=== PATIENT | female | born 1950 | race Caucasian/White ===

== ENCOUNTER 2019-08-22 21:34 | Observation (INO) | payer MEDICARE ==
[~2019-08-22] VITALS: Ht 167.6 cm; Wt 106.3 kg
[~2019-08-22 21:34] MED LIST: ACET325T14 PO; ALPR0.254 PO; AMIO200T42 PO; AMLO-150 PO; ATOR10TA PO; FEXO60TA24 PO; FLUO20TA25 PO; FLUT1DIS3 INH; GLIM4TAB8 PO; HYDR-3342 PO; INSU100C SQ-INSULIN; INSU100I11 SC; INSU100I13 SC; INSU300I SC; LACT1CAP40 PO; LIRA0.6P SC; LOSA1TAB25 PO; METO-93 PO; METO25TA91 PO; MONT10TA11 PO; MULT-642 PO; NEBI5TAB3 PO; OLME1TAB25 PO; OMEP-110 PO
[2019-08-22] MEDS ORDERED: FUROSEMIDE (21:53)
[2019-08-22] MEDS ORDERED: TRELEGY (21:53)
[2019-08-22] MEDS ORDERED: INSULIN (21:53)
[2019-08-22] MEDS ORDERED: ALBUTEROL INHALER (21:53)
[2019-08-22] MEDS ORDERED: GLIPIZIDE (21:53)
--- NOTE | 2019-08-22 21:54 | NUR ---
PT TRANSFERRED FROM [facility] FOR GIB. PT WAS SEEN THERE TODAY FOR SOB AND RIGHT LEG SWELLING. US NEGATIVE FRO BC. MULTIPLE BREATHING TX ADMINISTERED AT [facility]. PT CONNECTED TO [facility] VSS. DR. MONTES TO BS FOR ASSESSMENT. AWAITING ORDERS.
[2019-08-22] MEDS ORDERED: CEFTRIAXONE PMX 1GM/50ML 50 ML IV ONE (22:00)
--- NOTE | 2019-08-22 22:05 | NUR ---
report to JESSICA Pineda. pt resting in room. 2L NC placed for low during sleep.
--- NOTE | 2019-08-22 22:07 | NUR ---
RECEIVED BS REPORT FROM JESSICA THOMAS TO ASSUME CARE OF PT. ALL MONITORS IN PLACE. ALL SAFETY MEASURES OBSERVED. CALL LIGHT IN REACH. PT. AWARE AND AGREES WITH POC.
--- NOTE | 2019-08-22 22:22 | NUR ---
IV ESTABLISHED, 1 SET OF CULTURES DRAWN WITH IV START. AWAITING 2ND SET.
[2019-08-22] MEDS ORDERED: BISACODYL 10 MG SUPP PR PRN (22:30)
[2019-08-22] MEDS: INSULIN LISPRO 100 UNITS/ML, PEN SQ-INSULIN SCH (22:30)
[2019-08-22] MEDS ORDERED: HEPARIN 5,000 UNITS/ML, 1ML SQ SCH (22:30)
[2019-08-22] MEDS ORDERED: ACETAMINOPHEN 325 MG TABLET PO PRN (22:30)
[2019-08-22] MEDS ORDERED: POLYETHYLENE GLYCOL 17 GM PACKET PO PRN (22:30)
[2019-08-22] MEDS ORDERED: ONDANSETRON ODT 4 MG PO PRN (22:30)
--- NOTE | 2019-08-22 23:10 | NUR ---
1ST ATTEMPT TO CALL REPORT TO FLOOR.
--- NOTE | 2019-08-22 23:22 | NUR ---
TASK RN: REPORT CALLED TO JESSICA SUNSHINE.
[2019-08-22 23:40] VITALS: BP 175/76
[2019-08-23] MEDS: CEFTRIAXONE PMX 1GM/50ML 50 ML IV SCH (00:43)
[2019-08-23] MEDS: FUROSEMIDE 20 MG/2 ML IV SCH ×2 (00:43→07:51)
[2019-08-23 01:19] VITALS: BP 147/73
[2019-08-23 01:46] VITALS: BP 146/82
[2019-08-23 04:51] LABS: OCCULT BLOOD NEGATIVE (NEGATIVE)
[2019-08-23 05:32] VITALS: BP 136/67
[2019-08-23] MEDS: CARVEDILOL 12.5 MG TABLET PO SCH ×2 (05:33→17:36)
[2019-08-23 05:35] LABS: MD YES
[2019-08-23 05:37] LABS: MEAN CORPUSCULAR HEMOGLOBIN 19.2 pg (27.0-34.8); MEAN CORPUSCULAR VOLUME 64.5 fL (80-100); MEAN PLATELET VOLUME 8.6 fL (7.4-10.4); PLATELET COUNT 244 x10^3/uL (130-400); RED BLOOD COUNT 4.15 x10^6/uL (3.82-5.3); RED CELL DISTRIBUTION WIDTH 19.2 % (9.6-15.2)
[2019-08-23 05:43] LABS: CHLORIDE 115 mmol/L (98-107)
[2019-08-23 05:51] LABS: ALANINE AMINOTRANSFERASE 17 U/L (12-78); ALKALINE PHOSPHATASE 81 U/L (45-117); ANION GAP 5 mmol/L (5-15); BILIRUBIN,TOTAL 0.4 mg/dL (0.2-1.0); CALCIUM 8.1 mg/dL (8.5-10.1); CREATININE 1.39 mg/dL (0.55-1.02); TOTAL PROTEIN 6.1 g/dL (6.4-8.2)
[2019-08-23 06:04] LABS: EOS#(MANUAL) 0.55 x10^3/uL (0.0-0.4); EOS% (MANUAL) 6 % (1-7); LYMPH#(MANUAL) 2.12 x10^3/uL (1-3.4); LYMPHS% (MANUAL) 23 % (22-44); MONOS#(MANUAL) 0.55 x10^3/uL (0.3-2.7); MONOS% (MANUAL) 6 % (2-9); SEG#(MANUAL) 5.98 x10^3/uL (1.8-6.8); SEGS% (MANUAL) 65 % (42-75)
[2019-08-23 06:05] LABS: ANISOCYTOSIS 1+; HYPOCHROMIA 1+; MICROCYTOSIS 2+; OVALOCYTES 1+; POLYCHROMASIA 1+
[2019-08-23 06:06] LABS: ACANTHOCYTES 1+
[2019-08-23 06:07] LABS: <PLATELET ESTIMATE> ADEQUATE; <PLT MORPHOLOGY> NORMAL PLT MORPH; SCHISTOCYTES 1+
[2019-08-23 06:08] LABS: MEAN CORPUSCULAR HGB CONC 29.7 g/dL (32.4-35.8)
[2019-08-23] MEDS: INSULIN LISPRO 100 UNITS/ML, PEN SQ-INSULIN SCH ×4 (07:00→21:06)
[2019-08-23 07:06] VITALS: BP 127/55
[2019-08-23] MEDS ORDERED: FERROUS SULFATE 325 MG TABLET PO SCH (08:30)
[2019-08-23] MEDS ORDERED: ACETAMINOPHEN 325 MG TABLET PO PRN (08:30)
[2019-08-23] MEDS: SODIUM CHLORIDE FLUSH 10ML SYR IVF SCH ×2 (09:00→21:06)
[2019-08-23] MEDS: OMEPRAZOLE 20 MG CAPSULE.DR PO SCH (10:44)
[2019-08-23] MEDS: MONTELUKAST 10 MG TABLET PO SCH (10:44)
[2019-08-23] MEDS: LACTOBACILLUS CHEW TABLET PO SCH ×3 (10:44→21:05)
[2019-08-23] MEDS: SENNA/DOCUSATE TABLET PO SCH (10:45)
[2019-08-23 12:00] VITALS: BP 130/74
[2019-08-23 16:07] LABS: OCCULT BLOOD NEGATIVE (NEGATIVE)
[2019-08-23 19:49] VITALS: BP 132/70
[2019-08-24] MEDS: CEFTRIAXONE PMX 1GM/50ML 50 ML IV SCH (00:28)
[2019-08-24 01:17] VITALS: BP 123/65
[2019-08-24 05:37] VITALS: BP 128/69
[2019-08-24] MEDS: CARVEDILOL 12.5 MG TABLET PO SCH (05:38)
[2019-08-24 05:59] LABS: MEAN CORPUSCULAR HEMOGLOBIN 19.1 pg (27.0-34.8); MEAN CORPUSCULAR VOLUME 64.6 fL (80-100); MEAN PLATELET VOLUME 8.4 fL (7.4-10.4); PLATELET COUNT 248 x10^3/uL (130-400); RED BLOOD COUNT 4.35 x10^6/uL (3.82-5.3); RED CELL DISTRIBUTION WIDTH 19.1 % (9.6-15.2)
[2019-08-24 06:05] LABS: ANION GAP 5 mmol/L (5-15); CALCIUM 8.3 mg/dL (8.5-10.1); CHLORIDE 113 mmol/L (98-107)
[2019-08-24 06:07] LABS: CREATININE 1.29 mg/dL (0.55-1.02)
[2019-08-24 06:26] LABS: MD YES; MEAN CORPUSCULAR HGB CONC 29.5 g/dL (32.4-35.8)
[2019-08-24 06:31] LABS: ANISOCYTOSIS 1+; BASOS% (MANUAL) 1 % (0-1); EOS#(MANUAL) 0.57 x10^3/uL (0.0-0.4); EOS% (MANUAL) 6 % (1-7); HYPOCHROMIA 1+; LYMPH#(MANUAL) 2.57 x10^3/uL (1-3.4); LYMPHS% (MANUAL) 27 % (22-44); MICROCYTOSIS 2+; MONOS#(MANUAL) 0.48 x10^3/uL (0.3-2.7); MONOS% (MANUAL) 5 % (2-9); OVALOCYTES 1+; POLYCHROMASIA 1+; SEGS% (MANUAL) 61 % (42-75)
[2019-08-24 06:32] LABS: <PLATELET ESTIMATE> ADEQUATE; <PLT MORPHOLOGY> NORMAL PLT MORPH; ACANTHOCYTES 1+; SCHISTOCYTES 1+
[2019-08-24] MEDS: INSULIN LISPRO 100 UNITS/ML, PEN SQ-INSULIN SCH ×2 (07:00→11:48)
[2019-08-24] MEDS: LACTOBACILLUS CHEW TABLET PO SCH (08:01)
[2019-08-24] MEDS: MONTELUKAST 10 MG TABLET PO SCH (08:02)
[2019-08-24] MEDS: SODIUM CHLORIDE FLUSH 10ML SYR IVF SCH (08:02)
[2019-08-24] MEDS: OMEPRAZOLE 20 MG CAPSULE.DR PO SCH (08:02)
[2019-08-24] MEDS: SENNA/DOCUSATE TABLET PO SCH (08:02)
[2019-08-24 08:48] VITALS: BP 131/83
[2019-08-24 11:14] LABS: OCCULT BLOOD NEGATIVE (NEGATIVE)
[2019-08-24 12:38] VITALS: BP 135/73
[2019-08-24 13:09] LABS: CLOSTRIDIUM DIFFICILE ANTIGEN NEGATIVE; CLOSTRIDIUM DIFFICILE TOXIN NEGATIVE (Negative)
[2019-08-24] MEDS ORDERED: CARV12.52 PO (13:20)
[2019-08-24] MEDS ORDERED: ACID1TAB7 PO (13:20)
[2019-08-24] MEDS ORDERED: LOPE-114 PO (13:20)
[2019-08-24] MEDS ORDERED: FERR-51 PO (13:20)
[2019-08-24] MEDS ORDERED: HYDR-3341 PO (13:20)
[2019-08-24] MEDS ORDERED: CEPH-368 PO (13:21)
[2019-08-24 13:22] VITALS: BP 146/61
[2019-08-24] MEDS ORDERED: INSU100I11 SQ-INSULIN (13:24)
== END 2019-08-24 14:39 | disposition home or self-care (01) ==
LOC: ED 21:51 → EDIP 22:52 → INTOOBSV 22:52 → 4EST 23:58 → DCLOUNGE 08-24 14:14
PROVIDERS: ADMIT Internal Medicine; ATTEND Internal Medicine
DX: N39.0 Urinary tract infection, site not specified (principal); I11.0 Hypertensive heart disease with heart failure; I50.30 Unspecified diastolic (congestive) heart failure; K21.9 Gastro-esophageal reflux disease without esophagitis; R41.0 Disorientation, unspecified; K92.2 Gastrointestinal hemorrhage, unspecified; D50.9 Iron deficiency anemia, unspecified; M79.89 Other specified soft tissue disorders; M79.604 Pain in right leg; J44.9 Chronic obstructive pulmonary disease, unspecified; N17.9 Acute kidney failure, unspecified; E66.9 Obesity, unspecified; I27.21 Secondary pulmonary arterial hypertension; G47.30 Sleep apnea, unspecified; E11.649 Type 2 diabetes mellitus with hypoglycemia without coma; I48.92 Unspecified atrial flutter; R19.7 Diarrhea, unspecified; E11.40 Type 2 diabetes mellitus with diabetic neuropathy, unspecified; Z90.710 Acquired absence of both cervix and uterus; Z88.0 Allergy status to penicillin; Z79.899 Other long term (current) drug therapy
CPT/HCPCS: 36415; 80048; 80053; 82272; 82728; 82962; 83036; 83540; 83550; 85025; 87040; 87324; 93005; 93306; 93970; 96365; 96366; 96372; 96375; 96376; 99285; G0378; J0696; J1815; J1940